=== PATIENT | female | born 1955 | race Caucasian/White ===

== ENCOUNTER 2023-06-19 08:22 | Day surgery (SDC) | payer MEDICARE, BC ==
[~2023-06-19 08:22] MED LIST: Lactated Ringers 1,000 ML IV SCH; Sodium Chloride 0.9% 10 ML Syringe FLUSH PRN
[2023-06-19] MEDS ORDERED: Lidocaine 2% 5 ML SDV IV ONE (08:23)
[2023-06-19] MEDS ORDERED: Lidocaine 2% 5 ML SDV ONE (08:23)
[2023-06-19] MEDS ORDERED: Propofol 200 MG/20 ML SDV IV ONE (08:23)
== END 2023-06-19 09:41 | disposition home or self-care (01) ==
LOC: FB.SDS 08:22
PROVIDERS: ATTEND Surgery
DX: K29.70 Gastritis, unspecified, without bleeding (principal); K31.89 Other diseases of stomach and duodenum; I65.23 Occlusion and stenosis of bilateral carotid arteries; Z90.710 Acquired absence of both cervix and uterus; Z87.891 Personal history of nicotine dependence; Z79.84 Long term (current) use of oral hypoglycemic drugs; Z79.899 Other long term (current) drug therapy; Z79.82 Long term (current) use of aspirin; Z88.1 Allergy status to other antibiotic agents; Z88.0 Allergy status to penicillin; Z88.8 Allergy status to other drugs, medicaments and biological substances
CPT/HCPCS: 00731; 43239; 88305; 88342; J2704; J7120